=== PATIENT | female | born 1940 | race Caucasian/White ===

== ENCOUNTER 2016-10-13 08:56 | Day surgery (SDC) | payer MEDICARE, BC ==
[2016-10-13 11:09] VITALS: BP 145/57; PULSE 55; RESP 20; TEMP 96.4; O2SAT 98
== END 2016-10-13 11:20 | disposition home or self-care (01) | DRG 951 ==
LOC: SURG 08:56
PROVIDERS: ATTEND Surgery
DX: Z12.11 Encounter for screening for malignant neoplasm of colon (principal); D12.4 Benign neoplasm of descending colon
CPT/HCPCS: J2001; J2704